=== PATIENT | female | born 1950 | race Caucasian/White ===

== ENCOUNTER 2017-06-30 07:39 | Day surgery (SDC) | payer MEDICARE ==
[~2017-06-30] VITALS: Ht 172.7 cm; Wt 88.6 kg
[2017-06-30] VITALS (8 sets, daily range): BP systolic 106–134; BP diastolic 59–79; PULSE 62–80; RESP 18–20; TEMP 98.2–98.4; O2SAT 91–98
[2017-06-30] MEDS ORDERED: VITACAP7 PO (08:08)
[2017-06-30] MEDS ORDERED: COQ130CA (08:08)
[2017-06-30] MEDS ORDERED: MELA1TAB18 PO (08:08)
[2017-06-30] MEDS ORDERED: MULT-65 PO (08:08)
[2017-06-30] MEDS ORDERED: LATA0.002 EACH EYE (08:08)
[2017-06-30] MEDS ORDERED: TIMO0.5S30 EACH EYE (08:08)
[2017-06-30] MEDS ORDERED: LISI-515 PO (08:08)
[2017-06-30] MEDS ORDERED: LOVA20TA PO (08:08)
[2017-06-30] MEDS ORDERED: SODIUM CHLOR 0.9% 1000 ML IV SCH (08:30)
[2017-06-30] MEDS ORDERED: LIDOCAINE HCL 1% 20 ML VIAL ONE (10:43)
[2017-06-30] MEDS ORDERED: MIDAZOLAM HCL 2 MG/2 ML VIAL ONE (10:45)
[2017-06-30] MEDS ORDERED: fentaNYL CITRATE 250 MCG/5 ML AMP ONE (10:46)
--- NOTE | 2017-06-30 11:25 | PD.RAD ---
Post CT Procedure Prog Note Pre Procedure Diagnosis: (1) Lung mass Post Procedure Diagnosis: (1) Lung mass Procedure Date: Jun 30, 2017 Supervising Radiologist: Subhash Esparza Proceduralist/Assist: bernard dos santos Estimated blood loss: none Anesthesia: Conscious Sedation Plan of Activity Patient to Unit: ROPU Patient Condition: Good See PACS Report for procedural detail/treatment Subhash Esparza MD Jun 30, 2017 11:24
[2017-06-30] MEDS ORDERED: oxyCODONE/ACETAMINOPHEN 5 MG/325 MG TAB PO PRN (11:30)
--- NOTE | 2017-06-30 13:34 | RADRPT ---
EXAM DATE/TIME: 06/30/2017 12:54 [facility] COMPARISON: No previous studies available for comparison. INDICATIONS : Post right lung biopsy. MEDICAL HISTORY : Hypertension. Carcinoma, lung. SURGICAL HISTORY : Partial left lobe removed. ENCOUNTER: Initial ACUITY: 1 day PAIN SCORE: 0/10 LOCATION: Bilateral chest FINDINGS: Expiratory view demonstrates no evidence of significant right sided pneumothorax following right-side d lung mass biopsy. The biopsied mass is not well demonstrated on radiographs. Mild left lung volume loss consistent with history of prior partial lobectomy. Cardiomediastinal contours are within normal limits. Bony thorax is intact. CONCLUSION: 1. No significant pneumothorax status post right lung mass biopsy. Noam Hutchinson MD on June 30, 2017 at 13:29 Board Certified Radiologist. This report was verified electronically.
--- NOTE | 2017-06-30 16:07 | RADRPT ---
EXAM DATE/TIME: 06/30/2017 11:03 [facility] COMPARISON: No previous studies available for comparison. INDICATIONS : Right lung mass. SEDATION TIME: 30 minutes BIOPSY SITE: Right lung. MEDICATION(S): 1.) 2.5 mg midazolam (Versed) IV 2.) 125 mcg fentanyl (Sublimaze) IV DEVICE(S): 1.) 18 gauge Funk blunt needle 2.) 20 gauge Temno core biopsy needle MEDICAL HISTORY : Carcinoma, lung. Deep venous thrombosis. Hypercholesterolemia. Pulmonary embolism, hypertension. SURGICAL HISTORY : Cholecystectomy Lobectomy. ENCOUNTER: Initial ACUITY: 1 day PAIN SCORE: 0/10 LOCATION: Right chest A total of two core specimen(s) were obtained and sent to the laboratory for pathologic evaluation. PROCEDURE: 1. CT guided lung biopsy. Prior to the procedure informed consent was obtained. Any appropriate prior imaging studies were rev iewed. Using automated exposure control and adjustment of the mA and/or kV according to patient size, radiation dose was kept as low as reasonably achievable to obtain optimal diagnostic quality images. DICOM format image data is available electronically for review and comparison. The site was prepped in a sterile fashion. Full sterile technique was used, including cap, mask, nabila rile gloves and gown and a large sterile sheet. Hand hygiene and 2% chlorhexidine and/or betadine/al cohol prep was utilized per protocol for cutaneous antisepsis. The skin and subcutaneous tissues wer e infiltrated with local anesthetic solution. With CT guidance the previously identified target was localized. Biopsy was performed using the presc ribed needle as above. Adequate hemostasis was obtained with compression at the puncture site. Follow-up CT scan reveals no pneumothorax. Conscious sedation was performed with the prescribed dosages and duration as above in the presence of an independent trained radiology nurse to assist in the monitoring of the patient. EKG and oximetry remained stable throughout the procedure. The patient tolerated the procedure well and there were no complications. The patient was sent to Radiology Outpatient Unit in stable condition. CONCLUSION: Uncomplicated CT guided biopsy. Subhash Esparza MD on June 30, 2017 at 16:01 Board Certified Radiologist. This report was verified electronically.
--- NOTE | 2017-07-04 12:26 | RSPPFT ---
DATE OF PROCEDURE: 06/24/17 COMMENTS: Spirometry demonstrates an FEV1 of 2.0 at 79% of predicted, FVC of 3.6 at 110%, FEV1/FVC ratio at 57%. The FEF 25-75 at 40% of predicted. Post-bronchodilator study demonstrated no significant change. Lung volumes demonstrated a raised RV/TLC ratio indicating hyperinflation. Diffusion capacity mildly reduced. Flow volume loops suggest an obstructive pattern. IMPRESSION: 1. Mild to moderate obstructive disease. 2. No significant change following use of bronchodilator. 3. Mild reduction in diffusion capacity.
== END 2017-06-30 15:20 | disposition home or self-care (01) ==
LOC: HRAD 07:39 → HRIP 07:43 → HRAD 15:20
PROVIDERS: ATTEND Internal Medicine Hematology & Oncology
DX: C34.92 Malignant neoplasm of unspecified part of left bronchus or lung (principal); I10 Essential (primary) hypertension; E78.00 Pure hypercholesterolemia, unspecified
CPT/HCPCS: 32405; 71045; 77012; 88305; 88341; 88342; J2250; J3010

== ENCOUNTER 2017-08-22 06:01 | Day surgery (SDC) | payer MEDICARE ==
[~2017-08-22] VITALS: Ht 172.7 cm; Wt 88.6 kg
[~2017-08-22 06:01] MED LIST: COQ130CA; LATA0.002 EACH EYE; LISI-515 PO; LOVA20TA PO; MELA1TAB18 PO; MULT-65 PO; TIMO0.5S30 EACH EYE; VITACAP7 PO
[2017-08-22] MEDS ORDERED: LORA0.5T PO (06:45)
[2017-08-22] MEDS ORDERED: ZOLP10TA3 PO (06:45)
[2017-08-22] MEDS ORDERED: EYE VIT (06:45)
[2017-08-22 06:49] VITALS: BP 121/82; PULSE 80; RESP 18; TEMP 97.2; O2SAT 99
[2017-08-22] MEDS ORDERED: POVIDONE IODINE 5% (ANTISEPSIS KIT) 4 APPLICATIONS EACH NARE SCH (07:00)
[2017-08-22] MEDS ORDERED: CHLORHEXIDINE GLUCONATE 2 % 1 PACK (2 CLOTHS) TOPICAL SCH (07:00)
[2017-08-22] MEDS ORDERED: SODIUM CHLORIDE 0.9% 1000 ML IV SCH (07:00)
[2017-08-22] MEDS ORDERED: CEFAZOLIN INJ 2,000 MG in SODIUM CHLORIDE 0.9% INJ 100 ML IV SCH (07:00)
[2017-08-22] MEDS ORDERED: VANCOMYCIN 1000 MG/NS 250 ML - implanted port/tunneled catheter IV SCH ×2 (07:00)
[2017-08-22 07:27] LABS: PROTHROMBIN TIME - PATIENT 10.1 SEC (9.8-11.6)
[2017-08-22] MEDS ORDERED: LIDOCAINE 1%/EPINEPHrine 1:100,000 SOLN 30 ML VIAL ONE (07:50)
[2017-08-22] MEDS ORDERED: fentaNYL CITRATE 250 MCG/5 ML AMP ONE (08:09)
[2017-08-22] MEDS ORDERED: MIDAZOLAM HCL 5 MG/5 ML VIAL ONE (08:09)
[2017-08-22 09:05] VITALS: BP 131/75; PULSE 72; RESP 18; TEMP 98.6; O2SAT 95
[2017-08-22 09:20] VITALS: BP 134/79; PULSE 76; RESP 16; O2SAT 96
[2017-08-22] MEDS ORDERED: SODIUM CHLORIDE 0.9% FLUSH 10 ML FLUSH IVF PRN (09:45)
--- NOTE | 2017-08-22 09:46 | PD.RAD ---
Post Procedure Progress Note Pre Procedure Diagnosis: (1) Lung mass Post Procedure Diagnosis: (1) Lung mass Procedure Date: Aug 22, 2017 Supervising Radiologist: Yuan Isaac JR Proceduralist/Assist: Kamaljit Strickland, RT(R), Clair Briscoe RT(R) Anesthesia: Conscious Sedation Plan of Activity Patient to Unit: ROPU Patient Condition: Good See PACS Report for procedural detail/treatment Central Venous Access Device Procedure 1 Right Internal Jugular Infusaport Placement single lumen [place]: 8 Findings: Port in good position and functions well. OK to use. Plan F/U with IR in 10-14 days for a site check Jr. Poncho,Yuan Champion MD Aug 22, 2017 09:46
[2017-08-22 09:50] VITALS: BP 121/73; PULSE 75; RESP 16; O2SAT 94
[2017-08-22 10:20] VITALS: BP 119/63; PULSE 78; RESP 18; O2SAT 97
--- NOTE | 2017-08-22 11:40 | RADRPT ---
EXAM DATE/TIME: 08/22/2017 08:17 [facility] COMPARISON: No previous studies available for comparison. INDICATIONS : Patient presents with lung cancer in need of port placement for treatment. MEDICAL HISTORY : Glaucoma Tobacco use High Cholesterol HTN Lung Cancer PE DVT Diverticulitis SURGICAL HISTORY : JOCELIN Lobectomy Right LL Lobectomy Cholecystectomy ENCOUNTER: Initial ACUITY: 1 month PAIN SCORE: 0/10 LOCATION: N/A FLUORO TIME: 0.5 minutes IMAGE SERIES: 1 SEDATION TIME: 30 minutes ACCESS: Right internal jugular vein SEDATION: 1.) 3 mg midazolam (Versed) IV 2.) 150 mcg fentanyl (Sublimaze) IV Prophylactic antibiotics were administered with appropriate pre-procedure timing. Vancomycin within 2 hours of procedure, Ancef (or alternative) within 1 hour of procedure. DEVICE: 1. 8 Welsh single lumen Xcela Plus Port PROCEDURE : 1. Continuous pulse oximetry and EKG monitoring. 2. Intravenous conscious sedation. 3. Ultrasound guidance for venous access. 4. Fluoroscopic guided implantable central venous port placement. The patient was placed supine. The neck was prepped in sterile fashion. Full sterile technique was u sed, including cap, mask, sterile gloves and gown, and a large sterile sheet. Hand hygiene and 2% ch lorhexidine Betadine was utilized per protocol for cutaneous antisepsis with appropriate dry time for site. Sterile gel and sterile probe cover were utilized for ultrasound guidance. The skin and sub cutaneous tissues were infiltrated with local anesthetic solution. Under direct ultrasound guidance, central venous access was accomplished in the targeted vessel. The ultrasound images depicting access guidance were stored and saved to PACS for permanent record. A s ubcutaneous pocket was created using blunt dissection. The port was introduced to the pocket. The c atheter tubing was fed through a subcutaneous tunnel to the venotomy site. The catheter tubing was c ut to a suitable length and then was introduced through a valved Peel-Away sheath and positioned with catheter tubing tip at the cavo-atrial junction level. The pocket incision was closed with subcutic ular Vicryl suture. Steri-Strips were applied. The port was flushed and locked with heparin solutio n per protocol. Sterile dressing was applied to the site. The patient tolerated the procedure well. Conscious sedation was performed with the prescribed dosages and duration as above in the presence of an independent trained radiology nurse to assist in the monitoring of the patient. EKG and oximetry remained stable throughout the procedure. The patient tolerated the procedure well and there were no complications. The patient was sent to post anesthesia recovery in stable condition. CONCLUSION: Uncomplicated ultrasound and fluoroscopic guided implanted central venous port catheter placement as described in detail above. An 8 Welsh Power port was placed. Yuan Isaac Jr., MD on August 22, 2017 at 11:36 Board Certified Radiologist. This report was verified electronically.
== END 2017-08-22 11:00 | disposition home or self-care (01) ==
LOC: HROP 06:01 → HRIP 06:02 → HROP 11:00
PROVIDERS: ATTEND Internal Medicine Hematology & Oncology
DX: C34.91 Malignant neoplasm of unspecified part of right bronchus or lung (principal); I10 Essential (primary) hypertension; I82.509 Chronic embolism and thrombosis of unspecified deep veins of unspecified lower extremity; I27.82 Chronic pulmonary embolism; E78.00 Pure hypercholesterolemia, unspecified; H40.9 Unspecified glaucoma; Z72.0 Tobacco use
CPT/HCPCS: 36561; 76937; 77001; 85610; 85730; 99152; 99153; C1788; J1642; J2250; J3010